=== PATIENT | female | born 1945 | race Caucasian/White ===

== ENCOUNTER 2017-08-15 10:46 | Outpatient (CLI) | payer MEDICARE, OTHER | END 2017-08-15 10:47 | disposition home or self-care (01) | LOC: BICRAD 10:46 | PROVIDERS: ATTEND Internal Medicine Gastroenterology | DX: R19.4 Change in bowel habit (principal); R10.13 Epigastric pain | CPT/HCPCS: 74019 ==

== ENCOUNTER 2017-12-01 01:26 | Inpatient (IN) | payer MEDICARE, OTHER ==
[2017-12-01] MEDS ORDERED: Fentanyl 100 MCG/2 ML VIAL ONE ×4 (02:02→06:12)
[2017-12-01 02:13] LABS: #Basophils 0.1 thou/uL (0.0-0.2); #Eosinphils 0.1 thou/uL (0.0-0.7); #Lymphocytes 1.5 thou/uL (1.20-3.40); #Monocytes 0.4 thou/uL (0.11-0.59); #Neutrophils 4.5 thou/uL (1.40-6.50); %Eosinophils 2.2 % (0.0-10.0); %Lymphocytes 22.8 % (21.0-51.0); %Monocytes 6.2 % (0.0-10.0); %Neutrophils 67.8 % (42.0-75.0); Hemoglobin 14.3 g/dL (12.0-16.0); Mean Corpuscular HGB CONC 34.3 g/dL (32.0-36.0); Mean Corpuscular Hemoglobin 33.4 pg (27.0-31.0); Mean Corpuscular Volume 97.4 fl (81.0-99.0); Mean Platelet Volume 8.5 fL (7.4-10.4); Platelet Count 183 thou/uL (130-400); RBC Distribution Width 11.7 % (11.5-14.5); Red Blood Cell (RBC) Count 4.28 mill/uL (4.20-5.40); White Blood Cell (WBC) Count 6.7 thou/uL (4.8-10.8)
[2017-12-01 02:26] LABS: ALT (SGPT) 9 U/L (8-55); AST (SGOT) 13 U/L (5-34); Albumin 4.2 g/dL (3.4-4.8); Alkaline Phosphatase 34 U/L (40-150); Anion Gap 14 mmol/L (10-20); BUN (Urea Nitrogen) 13 mg/dL (9.8-20.1); Bilirubin, Total 0.5 mg/dL (0.2-1.2); Calc. Creatinine Clearance 0 mL/min (70-130); Calcium 9.4 mg/dL (7.8-10.44); Carbon Dioxide 26 mmol/L (23-31); Chloride 106 mmol/L (98-107); Estimated GFR-MDRD 76; Globulin 2.8 g/dL (2.4-3.5); Glucose 95 mg/dL (83-110); Lipase 20 U/L (8-78); Potassium 3.7 mmol/L (3.5-5.1); Sodium 142 mmol/L (136-145)
[2017-12-01] MEDS ORDERED: Ondansetron HCl/PF 4 MG/2 ML Vial ONE ×2 (02:28→06:09)
[2017-12-01 06:48] LABS: Bilirubin Negative (Negative); Blood, Urine Negative (Negative); Clarity Clear (Clear); Glucose, Urine (Dipstick) Negative (Negative); Leukocyte Negative (Negative); Nitrite Negative (Negative); Protein, Urine (Dipstick) Negative (Neg-Trace); Urobilinogen 0.2 mg/dL (0.2-1.0)
[2017-12-01 06:49] LABS: Specific Gravity, Urine 1.006 (1.002-1.036)
[2017-12-01] MEDS ORDERED: Ondansetron HCl/PF 4 MG/2 ML Vial IVP PRN (09:28)
[2017-12-01] MEDS ORDERED: Ondansetron ODT 4 MG TAB PO PRN (09:29)
[2017-12-01] MEDS ORDERED: Sodium Chloride 0.9% 1,000 ML IV SCH (09:30)
[2017-12-01 09:42] VITALS: BMI 21.6
[2017-12-01] MEDS: Fentanyl 100 MCG/2 ML VIAL SLOW IVP PRN ×6 (10:24→22:19)
--- NOTE | 2017-12-01 10:57 | CT ---
PRELIMINARY REPORT/[facility]/EMERGENTY AFTER-HOURS PROCEDURE CT Abdomen and Pelvis With Intravenous Contrast CLINICAL HISTORY: 72 years old, female; Pain; Abdominal pain; Patient HX: C/O mid epigastric abdominal pain starting to night. Also C/O nausea. Denies vomiting, diarrhea. TECHNIQUE: Axial computed tomography images of the abdomen and pelvis with intravenous contrast. Coronal reforma tted images were created and reviewed. CONTRAST: 85 mL of [id number] administered intravenously. COMPARISON: No relevant prior studies available. FINDINGS: Lung bases: There is a 7 mm nodule in the left lung base. There are smaller scattered nodules in both lung bases. ABDOMEN: Liver: There is a 1.3 cm probable cyst in the right lobe of the liver. Gallbladder and bile ducts: Unremarkable. No calcified stones. No ductal dilation. Pancreas: Unremarkable. Spleen: Unremarkable. Adrenals: Unremarkable. Kidneys and ureters: Unremarkable. Stomach and bowel: The small bowel is dilated measuring up to 4 cm in diameter. There is a transition point in the right lower quadrant. The small bowel at the transition point demonstrates wall thicken ing. The small bowel distal to the transition point is not distended. It contains fluid in its lumen. There is fluid in the proximal colon. There is a large amount of stool in the distal colon. PELVIS: Appendix: The appendix is not identified. Bladder: Unremarkable. No mass. Reproductive: The uterus is not identified. ABDOMEN and PELVIS: Intraperitoneal space: There is a small amount of fluid in the pelvis. Bones/joints: No acute fracture. No dislocation. Soft tissues: There is diffuse mesenteric edema in the pelvis. Vasculature: Calcifications in the ray of the aorta and other arteries are consistent with atherosc lerosis. No thoracic abdominal aortic aneurysm or dissection is identified. Lymph nodes: Unremarkable. No enlarged lymph nodes. IMPRESSION: 1. Evidence of small bowel obstruction with transition in the right lower quadrant. 2. Free fluid. 3. Pulmonary nodules. Thank you for allowing us to participate in the care of your patient. Dictated and Authenticated by: Isaac Mascorro MD 12/01/2017 5:22 AM Central Time ([place] & [place]) FINAL REPORT CT ABDOMEN AND PELVIS WITH IV CONTRAST: I agree with the preliminary report given by Dr. Mascorro of [email or web address]. POS: OFF
[2017-12-01] MEDS ORDERED: Acetaminophen 650 MG Suppository PR PRN (11:19)
[2017-12-01] MEDS ORDERED: Acetaminophen 1,000 MG in Premix Bag 1 BAG IVPB PRN (14:41)
[2017-12-01] MEDS ORDERED: Fentanyl 100 MCG/2 ML VIAL SLOW IVP PRN (14:41)
--- NOTE | 2017-12-01 15:48 | HP ---
DATE OF ADMISSION: 12/01/2017 CHIEF COMPLAINT: Abdominal pain. HISTORY OF PRESENT ILLNESS: This is a 72-year-old white female with known history of abdominal hyste rectomy many years ago following severe endometriosis. The patient was in her usual state of health until last night. She developed a sudden onset of abdominal pain in the mid epigastric area associat ed with nausea, but no vomiting. The patient had similar event in the past where she passed out with severe abdominal pain and vomiting and at this time she decided to come to the ER early and she went to the [facility] ER and she had a CT of the abdomen which showed a small-bowel obstructi on with no evidence of any abscess or free air. The patient was started on NG tube to intermittent s uction and Dr. Gregory from General Surgery was consulted. The patient was admitted to the hospital for further evaluation. The patient is seen on the floor with NG tube with intermittent suction, not draining much of GI fluid. The patient is comfortable, but she continues to rate the pain of 7 and 10 intensity in the mid epigastric area associated with nausea. Her pain is improved with morphine. She denied having any fever. Denied having any diarrhea or constipation. Last bowel movement was 2 days ago. She denied passing any black stools. She denied having any burning on passing urine. No frequent urinations. She denied having any chest pain, no shortness of breath, no headache, no dizz iness. 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 Ot herwise, she does not have any known medical history. PAST SURGICAL HISTORY: 1. Hysterectomy. 2. Aneurysm repair of her lyman aneurysm repair. SOCIAL HISTORY: The patient is known alcoholic. She drinks wine unknown quantity every day. No his tory of smoking. No history of illicit drug use. She lives independently by herself. FAMILY HISTORY: No significant family history of coronary artery disease or premature deaths in the family. HOME MEDICATIONS: Aspirin 81 mg p.o. daily., clonazepam 0.5 mg p.o. at bedtime, esomeprazole, estrad iol, estrogens, levothyroxine 125 mg p.o. daily, magnesium, progesterone 75 mg p.o. daily and testost erone. ALLERGIES: SULFONAMIDE ANTIBIOTICS. REVIEW OF SYSTEMS: Systems reviewed are HEENT, CVS, BUSINESS OPERATIONS SPECIALIST, respiratory, GI, , all systems are review ed thoroughly and found to be negative at this time except the ones described in HPI. Constitutional: Weight loss or gain, sense of well-being, ability to conduct usual activities, exerc ise tolerance. Skin/Breast: Rash, itching, changes in hair growth or loss, nail changes, breast lumps, tenderness, swelling, nipple discharge. Eyes: Vision, double vision, tearing, blind spots, pain. ENT/Mouth: Headaches (location, time of onset, duration, precipitating factors), vertigo, lightheadedness, injury. Vision, double vision, tearing, blind spots, pain, nose b leeding, colds, obstruction, discharge, dental difficulties, gingival bleeding, dentures, neck stiffn ess, pain, tenderness, masses in thyroid or other areas Cardiovascular: Precordial pain, substernal distress, palpitations, syncope, dyspnea on exertion, or thopnea, nocturnal paroxysmal dyspnea, edema, cyanosis, hypertension, heart murmurs, varicosities, ph lebitis, claudication. Respiratory: Pain, shortness of breath, wheezing, stridor, cough, hemoptysis, fever or night sweats Gastrointestinal: Poor appetite, dysphagia, indigestion, abdominal pain, heartburn, eructation, naus ea, vomiting, hematemesis, jaundice, constipation, or diarrhea, abnormal stools (chelsy-colored, tarry, bloody, greasy, foul smelling), flatulence, hemorrhoids, recent changes in bowel habits. Genitourinary: Urgency, frequency, dysuria, nocturia, hematuria, polyuria, oliguria, unusual (or delonte nge in) color of urine, stones, hesitancy, change in size of stream, dribbling, acute retention or in continence, libido, potency. Musculoskeletal: Pain, swelling, redness or heat of muscles or joints, limitation, of motion, muscular weakness, atrophy, cramps. Neurologic/Psychiatric: Convulsions, paralyses, tremor, incoordination, parasthesias, difficulties w ith memory of speech, sensory or motor disturbances, or muscular coordination (ataxia, tremor), emoti onal problems, anxiety, depression, previous psychiatric care, unusual perceptions, hallucinations. Allergy/Immunologic: Skin rash, anemia, bleeding tendency, polydipsia, polyuria, intolerance to heat or cold. PHYSICAL EXAMINATION: VITAL SIGNS: Blood pressure 100/61, heart rate is 56, respiratory rate is 18, saturation is 95%. GENERAL: The patient is moderately built and moderately nourished, does not appear to be in acute di stress. CARDIOVASCULAR: S1, S2 normal. No murmurs, rubs or gallops. LUNGS: Bilateral air entry was equal. No wheezing, no crackles. ABDOMEN: Distended, nontender, no guarding, no rebound tenderness. Bowel sounds are not heard. ABDOMEN: Soft. MUSCULOSKELETAL: No calf tenderness. No pedal edema. No joint tenderness, no joint swelling. SKIN: No cyanosis, no edema, no rash, no pallor. NEUROLOGIC: Cranial nerve examination II-XII intact. No focal deficits were noted. PSYCHIATRIC: No signs of suicidal ideation . No signs of jennifer. No signs of depression. NECK: No thyromegaly. No lymphadenopathy was noted. LABORATORY DATA: WBC 6.7, hemoglobin 14.3, hematocrit is 41.7, platelets 183. Sodium 142, potassium 3.7, chloride 106, bicarbonate 26, BUN 13, creatinine 0.75, blood sugar is 95, AST 13, ALT 9. WBC 6 .7, hemoglobin 14.3, hematocrit 41.7 and platelets 183. ASSESSMENT AND PLAN: 1. Acute small-bowel obstruction. 2. Moderate to severe dehydration. 3. Severe abdominal pain. 4. History of hypothyroidism. 5. Anxiety. 6. History of alcohol abuse. PLAN: 1. Plan is to closely monitor this patient. 2. Continue the patient with conservative management with NG tube with intermittent suction and plan is per Dr. Gregory. He is planned to do a gastric series follow through to look for improvement in the obstruction tomorrow. At this time we will keep the patient n.p.o. and do the bowel rest. We wi ll continue the IV hydration at 100 mL an hour. 3. The patient has evidence of alcohol abuse. So, we will closely monitor for alcohol withdrawals. We will do the thiamine and folic acid at this time daily. 4. Severe dehydration as explained above. We will continue with IV hydration. 5. DVT prophylaxis, on Lovenox. I spent 75 minutes with this patient.
--- NOTE | 2017-12-01 16:59 | CON ---
DATE OF CONSULTATION: 12/01/2017 CONSULTS: From the hospitalist, [facility]. REASON FOR CONSULTATION: Abdominal pain, nausea. HISTORY OF PRESENT ILLNESS: This is a 72-year-old with a history of open hysterectomy many years ago . She also had surgery for endometriosis. She states that she has had some minimal chronic cramping in her abdomen, previously saw Dr. Olson and was diagnosed with irritable bowel syndrome. Last col onoscopy and CT scan were earlier this year, now presents with more severe abdominal pain in the mid epigastric area associated with nausea. She vomited after drinking CT contrast. Multiple attempts a t passing NG were unsuccessful. I have now placed NG tube at the bedside. Denies previous known bow el obstruction. No symptoms of fever, chills. No dysuria, no history of chronic inflammatory bowel disease or chronic change in stool, no blood in stool. PAST MEDICAL HISTORY: Includes aneurysm with prolonged hospitalization. PAST SURGICAL HISTORY: As above. MEDICINES TAKEN DAILY: Aspirin, clonazepam. Nexium, estradiol, levothyroxine, progesterone. SOCIAL HISTORY: Multiple alcoholic drinks a day. No other drugs. Lives by herself. REVIEW OF SYSTEMS: Ten system review of systems is otherwise negative unless as described above. PHYSICAL EXAMINATION: VITAL SIGNS: Blood pressure is 114/69, pulse 63, respirations 16, temperature 98.2. HEENT: Sclerae anicteric. Oropharynx clear. NECK: No lymphadenopathy. CHEST: Clear. HEART: Regular rate and rhythm. ABDOMEN: Soft, it is tender in the mid epigastric area without guarding or rebound, minimally disten ded. No real bowel sounds present. No abdominal or inguinal hernias. EXTREMITIES: No ischemia or edema to extremities. LABORATORY DATA AND X-RAY FINDINGS: White blood cell count 6, hemoglobin 14, platelet count is 183. Sodium 142, potassium 3.7, creatinine 0.75. Albumin normal. LFTs normal. Bilirubin normal. CT sc an shows some edema to the mesentery in the pelvis as well as partial small bowel obstruction, small amount of free fluid. ASSESSMENT: Likely partial small bowel obstruction. PLAN: NG tube placed by me. Plan NG tube decompression overnight followed by small bowel follow thr ough tomorrow to the operating room if she fails to progress.
[2017-12-01] MEDS: Sodium Chloride 0.9% 1,000 ML IV SCH (18:52)
[2017-12-01] MEDS ORDERED: Chloraseptic Spray 180 ml Bottle PO PRN (20:59)
[2017-12-01] MEDS ORDERED: Famotidine/PF 20 mg/2ml Vial SLOW IVP SCH (21:00)
[2017-12-01] MEDS: Cepastat Lozenges 1 LOZ PO PRN (21:57)
[2017-12-02] MEDS: Cepastat Lozenges 1 LOZ PO PRN (03:45)
[2017-12-02] MEDS: Fentanyl 100 MCG/2 ML VIAL SLOW IVP PRN (03:46)
[2017-12-02] MEDS: Sodium Chloride 0.9% 1,000 ML IV SCH ×2 (04:47→16:48)
[2017-12-02 05:48] LABS: #Eosinphils 0.1 thou/uL (0.0-0.7); #Lymphocytes 1.2 thou/uL (1.20-3.40); #Monocytes 0.5 thou/uL (0.11-0.59); #Neutrophils 2.8 thou/uL (1.40-6.50); %Basophils 0.7 % (0.0-1.0); %Eosinophils 1.3 % (0.0-10.0); %Lymphocytes 26.9 % (21.0-51.0); %Monocytes 9.8 % (0.0-10.0); %Neutrophils 61.3 % (42.0-75.0); Hemoglobin 11.7 g/dL (12.0-16.0); Mean Corpuscular HGB CONC 32.9 g/dL (32.0-36.0); Mean Corpuscular Hemoglobin 33.2 pg (27.0-31.0); Mean Platelet Volume 7.8 fL (7.4-10.4); Platelet Count 134 thou/uL (130-400); Red Blood Cell (RBC) Count 3.54 mill/uL (4.20-5.40); White Blood Cell (WBC) Count 4.6 thou/uL (4.8-10.8)
[2017-12-02 05:58] LABS: Anion Gap 8 mmol/L (10-20); BUN (Urea Nitrogen) 10 mg/dL (9.8-20.1); Calc. Creatinine Clearance 64 mL/min (70-130); Calcium 7.9 mg/dL (7.8-10.44); Carbon Dioxide 27 mmol/L (23-31); Chloride 110 mmol/L (98-107); Estimated GFR-MDRD 79; Glucose 93 mg/dL (83-110); Potassium 3.7 mmol/L (3.5-5.1); Sodium 141 mmol/L (136-145)
--- NOTE | 2017-12-02 08:32 | PRG ---
DATE OF SERVICE: 12/02/2017 SUBJECTIVE: Ms. Gastelum has no complaints. Her abdomen feels better. No nausea after NG tube placem ent. Passed a small amount of gas. No bowel movements. PHYSICAL EXAMINATION: VITAL SIGNS: She is afebrile. Vital signs are stable. CHEST: Clear. HEART: Regular rate and rhythm. ABDOMEN: Soft, minimally distended, less tender than yesterday. Occasional bowel sounds. NG output is minimal. ASSESSMENT: Partial small-bowel obstruction, status post nasogastric tube placement by me. PLAN: Gastrografin small bowel follow through today. If negative, discontinue tube and start clears .
[2017-12-02] MEDS ORDERED: MD-Gastroview 120 ML BOT ONE (11:37)
[2017-12-02] MEDS ORDERED: Pantoprazole 40 MG VIAL IVP SCH (13:37)
--- NOTE | 2017-12-02 14:37 | RAD ---
SMALL BOWEL FOLLOW THROUGH: Date: 12/02/17 HISTORY: Small bowel obstruction. COMPARISON: CT prior day. FINDINGS: Contrast was administered to the patient by an enteric tube. There is contrast within the large bowel on the mirror fabrication supervisor radiograph. Therefore, there is no high grade s mall bowel obstruction. There is contrast from the prior day's CT. Contrast is seen within the cecal apex by 2 hours and 15 minutes. No dilated loops of large or small bowel. IMPRESSION: No evidence of high grade obstruction. POS: BRAN
[2017-12-02] MEDS ORDERED: clonazePAM 0.5 MG TAB PO PRN (15:37)
--- NOTE | 2017-12-02 15:37 | PDOC.PN ---
- Subjective Encounter Start Date: 12/02/17 Encounter Start Time: 10:00 Patient is seen today, alert and oriented. Shge still has NG tube, Xray series have been done pending results. pt abdominal pain is better. - Objective Resuscitation Status: Resuscitation Status FULL:Full Resuscitation MAR Reviewed: Yes Vital Signs & Weight: Vital Signs (12 hours) Temp Pulse Resp BP Pulse Ox 12/02/17 08:30 98.6 F 66 14 92 L 12/02/17 08:00 98.6 F 66 14 104/64 92 L 12/02/17 04:11 98.6 F 60 16 97/60 93 L I&O: 12/01/17 12/02/17 12/03/17 06:59 06:59 06:59 Intake Total 1100 Output Total 400 Balance 700 Result Diagrams: 12/02/17 05:27 12/02/17 05:27 Radiology Reviewed by me: Yes Phys Exam - Physical Examination HEENT: PERRLA, moist MMs Neck: no nodes, no JVD Respiratory: no wheezing, no rales Cardiovascular: RRR, no significant murmur Gastrointestinal: soft, non-tender Musculoskeletal: no edema Neurological: non-focal, normal sensation Lymphatic: no nodes Psychiatric: normal affect Dx/Plan (1) SBO (small bowel obstruction) Code(s): K56.609 - UNSP INTESTNL OBST, UNSP TO PARTIAL VERSUS COMPLETE OBST Status: Acute (2) HTN (hypertension) Code(s): I10 - ESSENTIAL (PRIMARY) HYPERTENSION Status: Acute (3) Hypothyroidism Code(s): E03.9 - HYPOTHYROIDISM, UNSPECIFIED Status: Acute Qualifiers: Hypothyroidism type: acquired Qualified Code(s): E03.9 - Hypothyroidism, unspecified Comment: Continue Home emds, No signs of Worseing Cold intolerence. (4) Moderate dehydration Code(s): E86.0 - DEHYDRATION Status: Acute Comment: Will continue with IV fluids until pt starts dring orally, as of now, Xrays look fine with no evidence of obstruction, will start clear liquids. - Plan cont current plan of care, PT/OT, social worker delinquency prevention, out of bed/ambulate, DVT proph w/lovenox * . Review of Systems - Review of Systems ENT: negative: Ear Pain, Ear Discharge, Nose Pain, Nose Discharge, Nose Congestion, Mouth Pain, Mouth Swelling, Throat Pain, Throat Swelling, Other Respiratory: negative: Cough, Dry, Shortness of Breath, Hemoptysis, SOB with Excertion, Pleuritic Pain, Sputum, Wheezing Cardiovascular: negative: chest pain, palpitations, orthopnea, paroxysmal nocturnal dyspnea, edema, light headedness, other Gastrointestinal: negative: Nausea, Vomiting, Abdominal Pain, Diarrhea, Constipation, Melena, Hematochezia, Other Musculoskeletal: negative: Neck Pain, Shoulder Pain, Arm Pain, Back Pain, Hand Pain, Leg Pain, Foot Pain, Other - Medications/Allergies Allergies/Adverse Reactions: Allergies Allergy/AdvReac Type Severity Reaction Status Date / Time Sulfa (Sulfonamide Allergy Verified 12/01/17 09:38 Antibiotics) Medications: Current Medications Fentanyl (Sublimaze) 25 mcg SLOW IVP Q1H PRN PRN Reason: Moderate Pain (4-6) Fentanyl (Sublimaze) 50 mcg SLOW IVP Q2H PRN PRN Reason: Severe Pain (7-10) Last Admin: 12/02/17 03:46 Dose: 50 mcg Thiamine HCl 100 mg/ Sodium (Chloride) 51 mls @ 100 mls/hr IVPB 1600 [facility] Last Admin: 12/01/17 16:29 Dose: 51 mls Sodium Chloride (Normal Saline 0.9%) 1,000 mls @ 100 mls/hr IV .Q10H [facility] Last Admin: 12/02/17 04:47 Dose: 1,000 mls Pantoprazole Sodium (Protonix) 40 mg IVP 1337 [facility] Last Admin: 12/02/17 15:13 Dose: 40 mg Phenol (Chloraseptic [place] 180 Ml Bot) 0 ml PO BIDPRN PRN PRN Reason: Sore Throat Sodium Chloride (Flush - Normal Saline) 10 ml IVF Q12HR [facility] Last Admin: 12/02/17 08:13 Dose: Not Given Sodium Chloride (Flush - Normal Saline) 10 ml IVF PRN PRN PRN Reason: Saline Flush Throat Lozenges (Cepastat Lozenges) 1 alexandra PO Q2H PRN PRN Reason: Sore Throat Last Admin: 12/02/17 03:45 Dose: 1 alexandra
[2017-12-02] MEDS ORDERED: Estradiol 0.05mg/24 Hour Patch (Weekly) TD SCH (15:45)
[2017-12-02] MEDS ORDERED: TESTOSTERONE 75 GM TD SCH (15:45)
[2017-12-02] MEDS ORDERED: Ubidecarenone 50 MG CAP PO SCH (21:00)
[2017-12-02] MEDS ORDERED: UBIDECARENONE 30 MG PO SCH (21:00)
[2017-12-03] MEDS: Sodium Chloride 0.9% 1,000 ML IV SCH (04:26)
[2017-12-03] MEDS ORDERED: VITAMIN D3 PO SCH (09:00)
[2017-12-03] MEDS ORDERED: Non-Formulary Item 1 EACH (Magnesium [Magnesium] 250 MG) PO SCH (09:00)
[2017-12-03] MEDS ORDERED: Calcium Carbonate + Vit D 1 TAB PO SCH (09:00)
[2017-12-03] MEDS ORDERED: Magnesium Oxide 250 MG TAB PO SCH (09:00)
[2017-12-03] MEDS ORDERED: Non-Formulary Item 1 EACH (Esomeprazole Magnesium [Nexium] 40 MG) PO SCH (09:00)
[2017-12-03] MEDS ORDERED: Progesterone,Micronized 100 MG CAP PO SCH (09:00)
[2017-12-03] MEDS ORDERED: Aspirin 81 mg Enteric Coated Tablet PO SCH (09:00)
[2017-12-03] MEDS ORDERED: [UNRECOGNIZED DRUG - OTHER] PO SCH (09:00)
[2017-12-03] MEDS ORDERED: Non-Formulary Item 1 EACH (Prasterone (Dhea) [Dhea] 25 MG) PO SCH (09:00)
[2017-12-03] MEDS ORDERED: CALCIUM CARBONATE PO SCH (09:00)
[2017-12-03] MEDS ORDERED: Levothyroxine Sodium 125 MCG TAB PO SCH (09:00)
[2017-12-03 11:38] VITALS: BP 128/68; TEMP 97.5
--- NOTE | 2017-12-03 11:40 | PDOC.PN ---
- Subjective Encounter Start Date: 12/03/17 Encounter Start Time: 11:00 Patient is seen today, alert and oriened. Waiting on General surgery to Clear her for Discharge. - Objective Resuscitation Status: Resuscitation Status FULL:Full Resuscitation MAR Reviewed: Yes Vital Signs & Weight: Vital Signs (12 hours) Temp Pulse Resp BP BP Pulse Ox 12/03/17 11:34 97.5 F L 51 L 16 128/68 94 L 12/03/17 08:08 98.8 F 63 16 100/61 95 12/03/17 04:00 97.7 F 50 L 16 95/52 L 93 L 12/03/17 00:00 97.6 F 56 L 16 92/54 L 91 L I&O: 12/02/17 12/03/17 12/04/17 06:59 06:59 06:59 Intake Total 1100 1200 Output Total 400 Balance 700 1200 Result Diagrams: 12/02/17 05:27 12/02/17 05:27 Radiology Reviewed by me: Yes Phys Exam - Physical Examination HEENT: PERRLA, moist MMs Neck: no nodes, no JVD Respiratory: no wheezing, no rales Cardiovascular: RRR, no significant murmur Gastrointestinal: soft, non-tender Musculoskeletal: no edema, pulses present Neurological: non-focal Dx/Plan (1) SBO (small bowel obstruction) Code(s): K56.609 - UNSP INTESTNL OBST, UNSP TO PARTIAL VERSUS COMPLETE OBST Status: Acute Comment: Pt NG tube removed, tolerating Diet. (2) HTN (hypertension) Code(s): I10 - ESSENTIAL (PRIMARY) HYPERTENSION Status: Acute Comment: Continue Home Meds. (3) Hypothyroidism Code(s): E03.9 - HYPOTHYROIDISM, UNSPECIFIED Status: Acute Qualifiers: Hypothyroidism type: acquired Qualified Code(s): E03.9 - Hypothyroidism, unspecified Comment: Continue Home emds, No signs of Worseing Cold intolerence. (4) Moderate dehydration Code(s): E86.0 - DEHYDRATION Status: Acute Comment: Will continue with IV fluids until pt starts dring orally, as of now, Xrays look fine with no evidence of obstruction, will start clear liquids. - Plan cont current plan of care, PT/OT, respiratory therapy, out of bed/ambulate Waiting on surgery to see pt. Likely discharge today. Review of Systems - Review of Systems Eyes: negative: Pain, Vision Change, Conjunctivae Inflammation, Eyelid Inflammation, Redness, Other ENT: negative: Ear Pain, Ear Discharge, Nose Pain, Nose Discharge, Nose Congestion, Mouth Pain, Mouth Swelling, Throat Pain, Throat Swelling, Other Respiratory: negative: Cough, Dry, Shortness of Breath, Hemoptysis, SOB with Excertion, Pleuritic Pain, Sputum, Wheezing Cardiovascular: negative: chest pain, palpitations, orthopnea, paroxysmal nocturnal dyspnea, edema, light headedness, other Gastrointestinal: negative: Nausea, Vomiting, Abdominal Pain, Diarrhea, Constipation, Melena, Hematochezia, Other Musculoskeletal: negative: Neck Pain, Shoulder Pain, Arm Pain, Back Pain, Hand Pain, Leg Pain, Foot Pain, Other Skin: negative: Rash, Lesions, Aníbal, Bruising, Other - Medications/Allergies Allergies/Adverse Reactions: Allergies Allergy/AdvReac Type Severity Reaction Status Date / Time Sulfa (Sulfonamide Allergy Verified 12/01/17 09:38 Antibiotics)
--- NOTE | 2017-12-03 14:38 | DIS ---
DATE OF ADMISSION: 12/01/2017 DATE OF DISCHARGE: 12/03/2017 ADMITTING DIAGNOSES: 1. Partial small-bowel obstruction. 2. Hypothyroidism. 3. Hypertension. DISCHARGE DIAGNOSES: 1. Partial small-bowel obstruction. 2. Hypothyroidism. 3. Hypertension. PROCEDURES: None. ATTENDING PHYSICIAN: Colt Schaefer M.D. CONDITION AT DISCHARGE: Improved. HOSPITAL COURSE: The patient was admitted with abdominal bloating and pain. Her CT scan showed evid ence of dilated intestine and a question of a small-bowel obstruction. She was admitted to the [facility]. On hospital day #1, she had persistent pain and bloating. I placed an NG tube. She felt mandy r after decompression of her stomach. On hospital day #2, she underwent Gastrografin small-bowel fol low through, which showed contrast flow to the colon with no significant delay. She had multiple bow el movements at that point. Her NG tube was removed. She felt better. She started a liquid diet to day. Today, she is doing well. Her vital signs are stable. Her abdomen is soft, nontender, nondist ended. She has active bowel sounds. She tolerated the liquid diet overnight. She has been discharg ed home. I recommended a full-liquid diet for few days and then a soft diet for few days and then no leafy veggies or salad for 2 weeks. She will follow up with me on an as needed basis.
== END 2017-12-03 13:00 | disposition home or self-care (01) | DRG 390 ==
LOC: SCSER 01:26 → SURG A 05:55
PROVIDERS: ADMIT Internal Medicine; ATTEND Internal Medicine
DX: K56.600 Partial intestinal obstruction, unspecified as to cause (principal); F10.20 Alcohol dependence, uncomplicated; E86.0 Dehydration; E03.9 Hypothyroidism, unspecified; F41.9 Anxiety disorder, unspecified
CPT/HCPCS: 36415; 74177; 74250; 80048; 80053; 81003; 83605; 83690; 85025; 96361; 96374; 96375; 96376; C9113; G8978-GP-CJ; G8979-GP-CJ; G8980-GP-CJ; J2405; J3010; J3411; J7050

== ENCOUNTER 2018-01-12 15:32 | Outpatient (CLI) | payer MEDICARE, OTHER | END 2018-01-12 15:33 | disposition home or self-care (01) | LOC: BICRAD 15:32 | PROVIDERS: ATTEND Physical Medicine & Rehabilitation | DX: M54.5 Low back pain (principal); M47.896 Other spondylosis, lumbar region | CPT/HCPCS: 72100 ==

== ENCOUNTER 2018-06-29 13:25 | Observation (INO) | payer MEDICARE, OTHER ==
[2018-06-29 14:02] LABS: #Lymphocytes 0.7 thou/uL (1.20-3.40); #Monocytes 0.3 thou/uL (0.11-0.59); #Neutrophils 7.9 thou/uL (1.40-6.50); %Basophils 0.1 % (0.0-1.0); %Eosinophils 0.3 % (0.0-10.0); %Lymphocytes 7.9 % (21.0-51.0); %Monocytes 3.4 % (0.0-10.0); %Neutrophils 88.3 % (42.0-75.0); Hemoglobin 14.8 g/dL (12.0-16.0); Mean Corpuscular HGB CONC 33.3 g/dL (32.0-36.0); Mean Corpuscular Hemoglobin 33.4 pg (27.0-31.0); Mean Platelet Volume 8.7 fL (7.4-10.4); Platelet Count 207 thou/uL (130-400); RBC Distribution Width 12.3 % (11.5-14.5); Red Blood Cell (RBC) Count 4.43 mill/uL (4.20-5.40); White Blood Cell (WBC) Count 8.9 thou/uL (4.8-10.8)
[2018-06-29] MEDS ORDERED: Morphine 4 MG/ML VIAL ONE (14:13)
[2018-06-29] MEDS ORDERED: Ondansetron PF 4 MG/2 ML Vial ONE (14:13)
[2018-06-29 14:34] LABS: ALT (SGPT) 11 U/L (8-55); AST (SGOT) 18 U/L (5-34); Albumin 4.3 g/dL (3.4-4.8); Alkaline Phosphatase 43 U/L (40-150); Anion Gap 13 mmol/L (10-20); BUN (Urea Nitrogen) 15 mg/dL (9.8-20.1); Bilirubin, Total 0.5 mg/dL (0.2-1.2); Calc. Creatinine Clearance 0 mL/min (70-130); Calcium 9.5 mg/dL (7.8-10.44); Carbon Dioxide 27 mmol/L (23-31); Chloride 102 mmol/L (98-107); Estimated GFR-MDRD 70; Globulin 3.2 g/dL (2.4-3.5); Glucose 130 mg/dL (83-110); Lipase 15 U/L (8-78); Protein, Total 7.5 g/dL (6.0-8.3); Sodium 138 mmol/L (136-145)
--- NOTE | 2018-06-29 16:08 | CT ---
CT ABDOMEN WITH CONTRAST CT PELVIS WITH CONTRAST 06/29/18 COMPARISON: 12/01/10. TECHNIQUE: An abdomen and pelvic CT performed with IV and oral contrast. Coronal reformatted images are submitte d for interpretation. HISTORY: Epigastric pain. FINDINGS: ABDOMEN CT: Lung bases demonstrate nodules in the left lower lobe measuring approximately 0.4 x 0.6 and 0.4 x 0.5 cm. Areas of scar and atelectasis in the middle lobe and lingula are also noted. Redemonstration of a hypodensity in the right hepatic lobe, likely representing an area of cystic delonte nge. There are no solid enhancing masses in the liver. The spleen, pancreas and adrenal glands have a ppropriate enhancement. Symmetric enhancement of the kidneys. Bilateral extrarenal pelvises are noted. Bilaterally, no obstru ctive uropathy. No gastrohepatic, retrocrural, or periportal lymphadenopathy. No mesenteric mass, lymphadenopathy, fr ee air or free fluid. Gastric mucosa and duodenum are unremarkable. there are slightly prominent contrast filled proximal s mall bowel loops. There appear to be fluid filled prominent jejunal loops. There appears to be abrupt transition in the left lower quadrant. The distal small bowel loops are decompressed. Ileocecal junc tion is unremarkable. Appendix is not appreciated. No inflammation at the cecal apex. The visualized colon is grossly unremarkable. Unremarkable gallbladder. Portal vein is patent. There is a persistent linear filling defect involving the proximal splenic vein just beyond it is con fluence with the superior mesenteric vein. This linear filling defect is stable when compared to an e xam from December 06, 2016 suggesting a chronic nonocclusive thrombus. CT PELVIS: Small amount of free fluid in the pelvis. No mass, lymphadenopathy, free air. Unremarkable urinary bl adder. No lytic or blastic lesions in the osseous structures. IMPRESSION: Findings suggestive of a partial small bowel obstruction. 1. POS: [facility]
[2018-06-29 16:24] LABS: Bilirubin Negative (Negative); Blood, Urine Negative (Negative); Clarity CLEAR (Clear); Glucose, Urine (Dipstick) Negative (Negative); Leukocyte Negative (Negative); Nitrite Negative (Negative); Protein, Urine (Dipstick) Negative (Neg-Trace); Specific Gravity, Urine 1.029 (1.002-1.036); Urobilinogen 0.2 mg/dL (0.2-1.0); pH, Urine 6.5 (5.0-9.0)
[2018-06-29] MEDS ORDERED: Ondansetron PF 4 MG/2 ML Vial IVP PRN (17:45)
[2018-06-29] MEDS ORDERED: Ondansetron ODT 4 MG TAB PO PRN (17:45)
[2018-06-29] MEDS ORDERED: Morphine 4 MG/ML VIAL SLOW IVP PRN (17:45)
[2018-06-29] MEDS ORDERED: Acetaminophen 500 MG TAB PO PRN (17:45)
[2018-06-29] MEDS ORDERED: Dextrose 5 % And 0.9 % NaCl 1,000 ML IV SCH (17:45)
[2018-06-29 17:51] VITALS: BMI 22.4
[2018-06-29] MEDS: Sodium Chloride 0.9% 1,000 ML IV SCH (20:12)
[2018-06-29] MEDS: Senokot S 8.6-50 MG TAB PO SCH (21:05)
[2018-06-29] MEDS: Famotidine/PF 20 mg/2ml Vial SLOW IVP SCH (21:08)
[2018-06-29] MEDS ORDERED: Iopamidol 370 76% 50 ML VIAL FS ONE (21:44)
[2018-06-29] MEDS ORDERED: Iopamidol 370 76% 100 ML VIAL ONE (21:44)
--- NOTE | 2018-06-30 00:33 | HP ---
PRIMARY CARE PROVIDER: Dr. Tarun Esposito. CHIEF COMPLAINT: Abdominal pain. HISTORY OF PRESENT ILLNESS: This is a 73-year-old female, who complained of severe generalized abdominal pain which began in the dietary worker hours of 06/29/2018. The patient does admit that she had cereal on the morning of presentation as well as a normal bowel movement. 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 The patient states she was evaluated at Dr. Olson ' office and told to transfer to the emergency room for further evaluation. The patient does relate to history of partial small bowel obstructions, treated conservatively in November of 2017 with a short hospital stay, 12/01 through 2017. The patient underwent NG tube decompression with resolution of her symptoms. The patient does admit to taking MiraLAX on a daily basis. Remains active and ambulatory. The patient denied any specific documented fever, travel history, or change to her dietary regimen. The patient denies taking any specific medication to relieve her symptoms. In the emergency room, the patient underwent general evaluation including CT of the abdomen and pelvis showing evidence of partial small bowel obstruction. The patient received IV morphine sulfate, intravenous normal saline, potassium chloride, and Zofran. The patient currently states her symptoms have improved. PAST MEDICAL HISTORY: 1. Recurrent small bowel obstruction, medically managed. 2. Hypothyroidism. 3. Hypertension. 4. History of lyman aneurysm, status post repair. PAST SURGICAL HISTORY: 1. Status post hysterectomy. 2. Status post aneurysm repair. CURRENT MEDICATIONS: 1. Enteric-coated aspirin 81 mg p.o. daily. 2. Calcium carbonate one tablet p.o. daily. 3. Klonopin 0.5 mg p.o. at bedtime p.r.n. 4. Nexium 40 mg p.o. daily. 5. Estradiol 0.05 mg patch transdermally q.weekly. 6. Premarin 0.625 mg p.o. twice a week. 7. Levothyroxine 125 mcg p.o. daily. 8. Magnesium oxide 250 mg p.o. daily. 9. DHEA 25 mg p.o. daily. 10. Progesterone 75 mg p.o. daily. 11. Estradiol 26gm transdermally. 12. Coenzyme Q10 of 30 mg p.o. b.i.d. ALLERGIES: SULFA. FAMILY HISTORY: No inheritable diseases per the patient's report. SOCIAL HISTORY: The patient resides in the [facility] area. Functional of all activities of daily living. Daily alcohol use. No tobacco or illicit drug use. REVIEW OF SYSTEMS: CONSTITUTIONAL: Negative for weight loss or gain, ability to conduct usual activities. SKIN: Negative for rash, itching. EYES: Negative for double vision, pain. ENT/MOUTH: Negative for nose bleeding, neck stiffness, pain, tenderness. CARDIOVASCULAR: Negative for palpitations, dyspnea on exertion, orthopnea. RESPIRATORY: Negative for shortness of breath, wheezing, cough, hemoptysis, fever or night sweats. GASTROINTESTINAL: Negative for poor appetite, abdominal pain, heartburn, nausea , vomiting, constipation, or diarrhea. GENITOURINARY: Negative for urgency, frequency, dysuria, nocturia. MUSCULOSKELETAL: Negative for pain, swelling. NEUROLOGIC/PSYCHIATRIC: Negative for anxiety, depression. ALLERGY/IMMUNOLOGIC: Negative for skin rash, bleeding tendency. Otherwise, negative except as stated per HPI. PHYSICAL EXAMINATION: VITAL SIGNS: On admission, blood pressure 115/58, pulse 59, respiratory rate 18 , temperature 97.9 degrees Fahrenheit, O2 saturation 95% on room air. GENERAL APPEARANCE: This is a 73-year-old female, appearing younger than stated age. Alert and oriented x3, pleasant, conversant, in no acute distress. HEENT: Pupils are equal, round, reactive to light and accommodation. Extraocular muscles are intact. No scleral icterus. No conjunctival injection. Nares patent. OP is clear. Teeth in good repair. NECK: Supple. No cervical adenopathy. No thyromegaly. No carotid bruits. No JVD appreciated. Cervical spine with full active and passive range of motion. No meningeal signs appreciated. CHEST: Lungs are clear to auscultation bilaterally. CARDIOVASCULAR: S1 and S2 without noted murmur, rub, or gallop. ABDOMEN: Rounded with mild tenderness to palpation in the mid epigastric region. No rebound or guarding. Bowel sounds are positive in all four quadrants. EXTREMITIES: Warm and dry with fair turgor. No clubbing, cyanosis, or asymmetric edema appreciated. Pulses palpable distally at the dorsalis pedis, posterior tibial, and popliteal arteries bilaterally. Capillary refill less than 2 seconds. NEUROLOGIC: Cranial nerves 2 through 12 are grossly intact. No focal or lateralizing signs appreciated. PERTINENT LAB AND X-RAY FINDINGS: Complete metabolic profile within normal limits. CBC showed a hemoglobin of 14.8, hematocrit 45, MCV 100, platelet count 207 with 88% neutrophils. Urinalysis negative. CT of the abdomen and pelvis dated 2017, showed partial small bowel obstruction. EKG dated 06/29/2018, by my interpretation shows a sinus mechanism with heart rates in the 50s. Normal R-wave progression noted in the precordial leads. Left axis deviation. No acute ST-T wave changes appreciated. ASSESSMENT AND PLAN: 1. Partial small bowel obstruction. The patient will be observed on the medical floor. We will continue conservative management. We will hold NG tube placement at this time pending clinical response to conservative management. Pain control with morphine sulfate 4 mg IV q.4 hours p.r.n. We will continue intravenous normal saline. General Surgery consult for general monitoring. Consider small bowel follow-through in the a.m. 2. Abdominal pain. Secondary to partial small bowel obstruction. See above for details. 3. Nausea and vomiting. Improved with antiemetics. We will continue Zofran 4 mg IV every 6 hours with additional IV fluids and place on clear liquid diet. 4. Gastroesophageal reflux disease. Continue Pepcid 20 mg IV q.12 hours. 5. Prophylaxis. SCDs while in bed. Pepcid 20 mg IV q.12 hours. 6. Code status is full. Surrogate medical decision maker not identified. Job ID: [id number] MTDD
[2018-06-30] MEDS ORDERED: Chloraseptic Spray 180 ml Bottle PO PRN (02:07)
[2018-06-30] MEDS ORDERED: Cepastat Lozenges 1 LOZ PO PRN (02:08)
--- NOTE | 2018-06-30 02:17 | CON ---
DATE OF CONSULTATION: CHIEF COMPLAINT: Abdominal pain. HISTORY: Ms. Gastelum is a 73-year-old woman with a past history of bowel obstruction in November of this year requiring a several-day inpatient admission. She presented to the emergency room with a history of upper abdominal pain, nausea, lightheadedness and chills since 5 a.m. that morning, which was quite severe. She was found on CT to have evidence of small-bowel obstruction and was brought into the Medicine Service. She states that since receiving pain medication in the emergency room, her pain is much better and she has not required any re-dosing since about noon. She is not currently nauseated, but has not passed any gas today. She states that she did have a bowel movement, which looked normal to her. She takes MiraLax on a regular basis. PAST MEDICAL HISTORY: Hypothyroidism, irritable bowel syndrome, reflux, and brain aneurysm. PAST SURGICAL HISTORY: Left breast lumpectomy, hysterectomy and open surgery for endometriosis as a young woman. ALLERGY: She reports an allergy to sulfa. OUTPATIENT MEDICATION: MiraLax. SOCIAL HISTORY: She does not smoke, drink, or use illicit drugs. PHYSICAL EXAMINATION: VITAL SIGNS: The patient is afebrile with normal vital signs. HEENT: Unremarkable. NECK: Supple without lymphadenopathy or thyroid nodules. HEART: Regular in its rate and rhythm without murmurs, rubs, or gallops. LUNGS: Clear to auscultation bilaterally. ABDOMEN: Soft, slightly distended. Mildly tender to palpation diffusely without focal findings. No palpable masses or hernias. Healed Pfannenstiel incision. Bowel sounds are hyperactive, high pitched. EXTREMITIES: Warm and well perfused without edema. NEURO: No focal deficits. PSYCHIATRIC: Alert, oriented and appropriate. LABORATORY DATA: Unremarkable. CT images are reviewed. I agree with the written report. The patient appears to have a fairly high-grade obstruction with a transition point seen in the pelvis. There is contrast in the proximal dilated bowel loops, but not in the more distal dilated bowel loops and the bowel loops distal to the transition point are very decompressed and small in caliber. ASSESSMENT AND PLAN: Small-bowel obstruction, which looks high grade on CT. The patient is not very symptomatic at this point, but has not passed any flatus and has high-pitched hyperactive bowel sounds consistent with a persistent obstruction. I have recommended bowel rest with NG tube placement. Typically, I recommend 24 to 48 hours of bowel rest before obtaining a Gastrografin small-bowel follow-through, but the patient really wants to go home tomorrow. If she looks better tomorrow with passing gas and has evidence of resolution of her obstruction on plain films such as diminished diameter of the small bowel loops or passage of contrast into the colon, then we can proceed with Gastrografin small-bowel follow-through. Otherwise, I would recommend a full 24 to 48 hours of bowel rest. The patient is in agreement with this plan. NG tube will be placed. Job ID: [id number]
[2018-06-30 06:46] LABS: Band 1 % (5-11); Hemoglobin 12.6 g/dL (12.0-16.0); Lymphocytes 45 % (21-51); MDiff Complete? YES; Mean Corpuscular HGB CONC 33.4 g/dL (32.0-36.0); Mean Corpuscular Hemoglobin 33.5 pg (27.0-31.0); Mean Platelet Volume 8.6 fL (7.4-10.4); Monocytes 1 % (0-10); Neutrophil 53 % (42-75); PLT Morphology Comment Appears Adequate; Platelet Count 168 thou/uL (130-400); RBC Distribution Width 12.2 % (11.5-14.5); Red Blood Cell (RBC) Count 3.76 mill/uL (4.20-5.40); White Blood Cell (WBC) Count 4.3 thou/uL (4.8-10.8)
[2018-06-30 06:54] LABS: Anion Gap 10 mmol/L (10-20); BUN (Urea Nitrogen) 10 mg/dL (9.8-20.1); Calc. Creatinine Clearance 65 mL/min (70-130); Calcium 8.5 mg/dL (7.8-10.44); Carbon Dioxide 27 mmol/L (23-31); Chloride 109 mmol/L (98-107); Estimated GFR-MDRD 79; Glucose 92 mg/dL (83-110); Potassium 3.7 mmol/L (3.5-5.1); Sodium 142 mmol/L (136-145)
[2018-06-30] MEDS: Famotidine/PF 20 mg/2ml Vial SLOW IVP SCH (07:51)
[2018-06-30] MEDS: Senokot S 8.6-50 MG TAB PO SCH (07:51)
[2018-06-30] MEDS: Sodium Chloride 0.9% 1,000 ML IV SCH (07:52)
--- NOTE | 2018-06-30 08:59 | RAD ---
ABDOMEN TWO VIEWS: History: 73-year-old female with history of small bowel obstruction. Comparison: Abdomen CT 06-29-18. FINDINGS: There is oral contrast in the colon from previous CT scan. There are no focally abnormally dilated lo ops of small bowel seen on this plain film study. No free intraperitoneal air. No overt calculus. Mil d linear and parenchymal changes in the lung bases, probably chronic. IMPRESSION: Contrast media from the previous CT scan has completely progressed through the small bowel and is in the colon. The fluid filled dilated loops of small bowel are not definitely imaged on this study. POS: BRAN
[2018-06-30] MEDS ORDERED: Pantoprazole 40 MG VIAL IVP SCH (09:00)
[2018-06-30 11:59] VITALS: BP 105/60; TEMP 98.4
--- NOTE | 2018-06-30 12:48 | DIS ---
DATE OF ADMISSION: 06/29/2018 DATE OF DISCHARGE: 06/30/2018 DISCHARGE DIAGNOSES: 1. Partial small bowel obstruction, medically managed. 2. Nausea and vomiting secondary to partial small bowel obstruction, resolved. 3. Abdominal pain secondary to partial small bowel obstruction, resolved. 4. Gastroesophageal reflux disease, stable. CONSULTATIONS: Dr. Moore with General Surgery Service. PERTINENT LAB AND X-RAY FINDINGS: Complete metabolic profile within normal limits. CBC within normal limits. CT of the abdomen and pelvis dated 06/29/2018, showed partial small bowel obstruction. Abdominal x-rays dated 06/30/2018, showed normal findings. HOSPITAL COURSE: The patient was observed on the medical floor, who presented with severe abdominal pain with associated nausea and vomiting. The patient underwent CT imaging of the abdomen and pelvis showing evidence of partial small bowel obstruction. The patient was placed on n.p.o. status with attempts to place an NG tube, which were unsuccessful. The patient did have several bowel movements during the hospital course and tolerated clear liquids without an acute intervention. Repeat abdominal radiograph showed complete resolution of partial small bowel obstruction with contrast in the colon. The patient remained clinically stable during the hospital course with stable vital signs. I have examined the patient at the time of discharge and discussed followup instructions. The patient overall clinically stable and ready for discharge on 06/30/2018. DISCHARGE MEDICATIONS: 1. Enteric-coated aspirin 81 mg p.o. daily. 2. Calcium with vitamin D one tablet p.o. daily. 3. Vitamin D3 of 1000 units p.o. daily. 4. Klonopin 0.5 mg p.o. at bedtime p.r.n. 5. Nexium 40 mg p.o. daily. 6. Estradiol 26 g transdermally daily. 7. Premarin 0.625 mg p.o. daily. 8. Glucosamine 1 tablet p.o. daily. 9. Lactobacillus 1 capsule p.o. daily. 10. Levothyroxine 112 mcg p.o. daily. FOLLOWUP: The patient may follow up with her primary care provider, Dr. Tarun Esposito, within 7 days of discharge. The patient to follow up with Dr. Olson with GI Service and to call his office for appointment, time, and date. CONDITION ON DISCHARGE: Stable. ACTIVITY: Ad-sophia. DIET: Regular. CODE STATUS: Full. DISPOSITION: Home on 06/30/2018. Job ID: [id number]
--- NOTE | 2018-07-01 13:58 | EKG ---
Test Reason : Blood Pressure : / mmHG Vent. Rate : 052 BPM Atrial Rate : 052 BPM P-R Int : 144 ms QRS Dur : 084 ms QT Int : 434 ms P-R-T Axes : 083 -50 057 degrees QTc Int : 403 ms Sinus bradycardia Left axis deviation Septal infarct , age undetermined Abnormal ECG Confirmed by MILTNO SHEIKH D.O. ([id number]), website/blog editor NIA BARRY ([id number]) on 07/01/2018 1:58:11 PM Referred By: Confirmed By:MILTON SHEIKH D.O.
== END 2018-06-30 14:47 | disposition home or self-care (01) ==
LOC: ERS 13:25 → 2SW 16:17
PROVIDERS: ADMIT Family Medicine; ATTEND Family Medicine
DX: K56.600 Partial intestinal obstruction, unspecified as to cause (principal); K21.9 Gastro-esophageal reflux disease without esophagitis; E03.9 Hypothyroidism, unspecified; I10 Essential (primary) hypertension; Z98.890 Other specified postprocedural states; Z79.82 Long term (current) use of aspirin; Z79.899 Other long term (current) drug therapy; Z88.2 Allergy status to sulfonamides
CPT/HCPCS: 74019; 74177; 80048; 80053; 81003; 83690; 85007; 85025; 85027; 93005; 96361 ×3; 96374; 96375 ×3; 96376; 99285; G0378; 36415; C9113; J2270; J2405; S0028

== ENCOUNTER 2020-11-17 14:03 | Outpatient (CLI) | payer MEDICARE | END 2020-11-17 14:04 | disposition home or self-care (01) | LOC: BICRAD 14:03 | PROVIDERS: ATTEND Physical Medicine & Rehabilitation | DX: M25.551 Pain in right hip (principal) ==